=== PATIENT | male | born 1960 | race Two or more races ===

== ENCOUNTER 2017-08-01 09:14 | Day surgery (SDC) | payer OTHER ==
[~2017-08-01] VITALS: Ht 165.1 cm; Wt 108.0 kg
[2017-08-01] VITALS (9 sets, daily range): BP systolic 115–143; BP diastolic 76–92
--- NOTE | 2017-08-01 07:31 | Pre-Procedure Note/Attestation ---
Pre-Procedure Note/Attestation Complete Prior to Procedure Planned Procedure: left Procedure Narrative: knee arthroscopy medial menisectomy Indications for Procedure Pre-Operative Diagnosis: left knee medial meniscus tear Attestation I attest that I discussed the nature of the procedure; its benefits; risks and complications; and alternatives (and the risks and benefits of such alternatives ), prior to the procedure, with the patient (or the patient's legal insurance representative). I attest that, if there was a reasonable possibility of needing a blood transfusion, the patient (or the patient's legal insurance representative) was given the [facility] standardized written summary, pursuant to the Isma Kp Blood Safety Act ([place] Health and Safety Code # 1645, as amended). I attest that I re-evaluated the patient just prior to the surgery and that there has been no change in the patient's H&P, except as documented below: ABDIEL PEDRAZA Aug 01, 2017 07:31
--- NOTE | 2017-08-01 07:32 | Operative Note - PDOC ---
Operative Note Operative Note Pre-op Diagnosis: left knee medial meniscus tear Procedure: left knee tricompartmental synovectomy Post-op Diagnosis: same as pre-op plus Operative Findings: consistent w/pre-op dx studies Anesthesia: MAC Specimen: none Complications: none Condition: stable Estimated Blood Loss: none Implant(s) used?: No ABDIEL PEDRAZA Aug 01, 2017 07:32
[~2017-08-01 09:14] MED LIST: D5 1/2NS 1,000 ML IV SCH; GEMFIBROZIL600 MG ORAL; HYDROmorphone 1mg/ml Carpuject SUBQ PRN; LOSARTAN POTASS25 MG ORAL; Norco 5mg/325mg tab ORAL PRN; PANTOPRAZOLE SO40 MG ORAL; Tylenol #3 tab (300mg/30mg) ORAL PRN; ceFAZolin 1gm in D5W 55ml IVP ONE; celeBREX 200mg Cap **SURGERY PATIENTS ONLY ORAL ONE; oxyCONTIN 20mg tab ORAL ONE
[2017-08-01] MEDS ORDERED: NS Irrig 4000ml IRRIG ONE (16:00)
[2017-08-01] MEDS ORDERED: Ketorolac 30mg Inj ONE ×2 (16:00→16:02)
[2017-08-01] MEDS ORDERED: ePHEDrine 50mg/ml Inj ONE (16:00)
[2017-08-01] MEDS ORDERED: fentaNYL 100 mcg/2 mL IV ONE (16:00)
[2017-08-01] MEDS ORDERED: Propofol 200mg/20ml IV ONE (16:00)
[2017-08-01] MEDS ORDERED: Lidocaine 1% MPF 10mg/ml 5ml ONE (16:00)
[2017-08-01] MEDS ORDERED: Metoclopramide 10mg/2ml Inj ONE (16:00)
[2017-08-01] MEDS ORDERED: LR 1000ml ONE (16:00)
[2017-08-01] MEDS ORDERED: Lidocaine 1% 10mg/ml/Epi 0.005mg/ml 30ml vial INJ ONE (16:02)
[2017-08-01] MEDS ORDERED: Morphine Sulfate PF 10 ML ONE (16:02)
[2017-08-01] MEDS ORDERED: Bupivacaine 0.25% Inj 30ml INJ ONE (16:02)
[2017-08-01] MEDS ORDERED: Kenalog-40 1ml Vial ONE (16:15)
[2017-08-01] MEDS ORDERED: Metoclopramide 10mg/2ml Inj IVP PRN (16:15)
[2017-08-01] MEDS ORDERED: fentaNYL 100 mcg/2 mL IV PRN (16:15)
[2017-08-01] MEDS ORDERED: Duramorph PF 10mg/10ml amp IV ONE (16:50)
--- NOTE | 2017-08-01 16:57 | Anethesia Preoperative Eval ---
Anesthesia Pre-op PMH/ROS General Date of Evaluation: Aug 01, 2017 Time of Evaluation: 16:56 Anesthesiologist: erich ASA Score: ASA 3 Mallampati Score Class I : Soft palate, uvula, fauces, pillars visible Class II: Soft palate, uvula, fauces visible Class III: Soft palate, base of uvula visible Class IV: Only hard plate visible Mallampati Classification: Class III Surgeon: astudillo Diagnosis: meniscus tear Surgical Procedure: Left knee arthroscopy Anesthesia History: none Social History: smoking Family History: no anesthesia problems Allergies: Coded Allergies: CAT DANDER (Verified Allergy, Intermediate, sneezing, 07/31/17) Medications: see eMAR Past Medical History Cardiovascular: Reports: HTN Pulmonary: Reports: GAGAN, Denies: asthma, COPD, other Gastrointestinal/Genitourinary: Reports: GERD Neurologic/Psychiatric: Denies: dementia, CVA, depression/anxiety, TIA, other Endocrine: Denies: DM, hypothyroidism, steroids, other Hematology/Immune: Denies: anemia, DVT, bleeding disorder, other Musculoskeletal/Integumentary: Reports: DJD, Denies: OA, RA, DDD, edema, other Other: obesity PSxH Narrative: hernia, lap aleida Anesthesia Pre-op Phys. Exam Physician Exam Last Vital Signs Date Time Temp Pulse Resp B/P (MAP) Pulse Ox O2 Delivery O2 Flow Rate FiO2 08/01/17 10:48 98.7 82 18 132/83 95 Room Air Constitutional: NAD Neurologic: CN 2-12 intact Cardiovascular: RRR Respiratory: CTA Gastrointestinal: S/NT/ND Airway Exam Mallampati Classification 3 Mallampati Score: Class III MO: limited ROM: full Dentures: upper, no lower Anesthesia Pre-op A/P Studies Pre-op Studies: EKG - sr Risk Assessment & Plan Plan: general lma Pre-Antibiotics Drug: ancef Given Within 1 Hr of Incision: Yes Time Given: 16:30 NORA STORY CRNA Aug 01, 2017 16:57
--- NOTE | 2017-08-01 17:16 | Immediate Post-Op Evaluation ---
Immediate Post-Op Evalulation Immediate Post-Op Evalulation Procedure: left knee arthroscopy Date of Evaluation: Aug 01, 2017 Time of Evaluation: 17:16 IV Fluids: 800 Blood Pressure Systolic: 127 Blood Pressure Diastolic: 83 Pulse Rate: 54 Respiratory Rate: 14 O2 Sat by Pulse Oximetry: 100 Temperature (Fahrenheit): 97.6 Pain Score (1-10): 0 Nausea: No Vomiting: No Complications none Patient Status: awake, reacts, patent Hydration Status: adequate Drug: ancef Given Within 1 Hr of Incision: Yes Time Given: 16:30 NORA STORY CRNA Aug 01, 2017 17:16
--- NOTE | 2017-08-02 02:31 | Operative Note - Dictated ---
DATE OF OPERATION: 08/01/2017 PREOPERATIVE DIAGNOSIS: Left knee internal derangement secondary to possible medial meniscus tear. POSTOPERATIVE DIAGNOSES: 1. Left knee traumatic medial plica. 2. Intrameniscal degeneration, posterior horn of medial meniscus. 3. Hypertrophic synovial tissue, medial and lateral patellofemoral compartment. PROCEDURE: 1. Left knee diagnostic arthroscopy. 2. Synovectomy of medial lateral patellofemoral compartment. SURGEON: Bari Aviles M.D. ANESTHESIA: MAC with local. INDICATION FOR PROCEDURE: The patient is a pleasant gentleman who has had left knee pain. He had an MRI, which showed possible meniscal tear. After failing conservative treatment, elected to undergo left knee diagnostic arthroscopy and possible medial meniscectomy. Risks, limitations, expectations and complications related to procedure were discussed in detail including continued pain, need for future surgery, risk of anesthesia, medical complications, etc. All questions were addressed. DESCRIPTION OF PROCEDURE: An informed consent was obtained. The patient was brought to the operating room. The patient was placed under monitored anesthesia control. Tourniquet was applied to left proximal thigh. The left leg was prepped and draped in a sterile manner. Time-out was performed. A 0.25% Marcaine was injected into the left knee. Portal sites were injected with 1% lidocaine with epinephrine. Esmarch was used to exsanguinate the extremity. Inferolateral stab incision was then made. Trocar was introduced into the knee joint. Of note, on introducing the trocar, there was significant resistance secondary to the scar tissue in the lateral gutters. Once the patellofemoral compartment was entered, it was difficult to visualize patellofemoral compartment due to hypertrophic synovial tissue. It appeared to be a medial plica. Medial gutter was entered, free from the meniscal loose bodies. Medial compartment was entered. Medial working portal was established and the posterior horn of the meniscus was probed, posterior horn where the concern for the tear was. There was no significant chondral damage. There was hypertrophy of ligamentum and synovial tissue lateral compartment of the knee. Once this was removed, ACL was probed and noted to be intact. Lateral compartment was entered and noted to be intact. The camera was repositioned in the patellofemoral compartment and synovectomy of the patellofemoral compartment was completed. Once that was done, of note, there was an area corresponding to the medial plica along the medial femoral condyle where it seemed like it was impinging causing the symptoms. At this point, the instruments were removed. Portal sites were closed using 3-0 Monocryl sutures. Steri-Strips and a sterile dressing were applied. The patient was awoken and taken to recovery with stable vital signs. ESTIMATED BLOOD LOSS: None. COMPLICATIONS: None. SPECIMENS: None. IMPLANTS: None. Bari Aviles M.D. DR: GERONIMO JOB#: [id number] CC: RAVI
[2017-08-27 09:01] VITALS: BP 140/76
--- NOTE | 2017-08-27 09:01 | 48 Hour Post Anesthesia Eval ---
Post Anesthesia Evaluation Procedure: left knee arthroscopy Date of Evaluation: Aug 27, 2017 Time of Evaluation: 09:00 Blood Pressure Systolic: 140 0: 76 Pulse Rate: 96 Respiratory Rate: 14 O2 Sat by Pulse Oximetry: 100 Airway: patent Nausea: No Vomiting: No Hydration Status: adequate Mental Status/LOC: patient returned to baseline Follow-up Care/Observations: na Post-Anesthesia Complications: none Follow-up care needed: N/A NORA STORY CRNA Aug 27, 2017 09:01
== END 2017-08-01 18:45 | disposition home or self-care (01) ==
LOC: SUR 09:14
DX: M67.52 Plica syndrome, left knee (principal); M67.262 Synovial hypertrophy, not elsewhere classified, left lower leg; K21.9 Gastro-esophageal reflux disease without esophagitis; I10 Essential (primary) hypertension; E78.5 Hyperlipidemia, unspecified; G47.33 Obstructive sleep apnea (adult) (pediatric); Z90.49 Acquired absence of other specified parts of digestive tract; Z82.49 Family history of ischemic heart disease and other diseases of the circulatory system; Z80.9 Family history of malignant neoplasm, unspecified; Z91.048 Other nonmedicinal substance allergy status; M19.90 Unspecified osteoarthritis, unspecified site
CPT/HCPCS: 29876; 97161; J0690; J1885; J2274; J2405; J2704; J2765; J3010; J3301; J3490; J7120; 94003; 94150

== ENCOUNTER 2018-03-05 05:34 | Inpatient (IN) | payer OTHER ==
[2018-03-05] VITALS (8 sets, daily range): BP systolic 110–161; BP diastolic 49–104
[~2018-03-05] VITALS: Ht 167.6 cm; Wt 112.0 kg
[~2018-03-05 05:34] MED LIST changes: -D5 1/2NS 1,000 ML IV SCH; -HYDROmorphone 1mg/ml Carpuject SUBQ PRN; -Norco 5mg/325mg tab ORAL PRN; -Tylenol #3 tab (300mg/30mg) ORAL PRN; -ceFAZolin 1gm in D5W 55ml IVP ONE; -celeBREX 200mg Cap **SURGERY PATIENTS ONLY ORAL ONE; -oxyCONTIN 20mg tab ORAL ONE
[2018-03-05] MEDS ORDERED: LR 1000ml 1,000 ML IVLG SCH (06:52)
--- NOTE | 2018-03-05 06:52 | Anethesia Preoperative Eval ---
Anesthesia Pre-op PMH/ROS General Date of Evaluation: Mar 05, 2018 Time of Evaluation: 07:21 Anesthesiologist: Иван ASA Score: ASA 3 Mallampati Score Class I : Soft palate, uvula, fauces, pillars visible Class II: Soft palate, uvula, fauces visible Class III: Soft palate, base of uvula visible Class IV: Only hard plate visible Mallampati Classification: Class III Surgeon: Haroldo Diagnosis: Back Pain Surgical Procedure: Left PLIF L4-5, L5-S1 , Decompression Anesthesia History: none Family History: no anesthesia problems Allergies: Coded Allergies: CAT DANDER (Verified Allergy, Intermediate, sneezing, 03/04/18) Medications: see eMAR Past Medical History Cardiovascular: Reports: HTN, other - HL Pulmonary: Reports: GAGAN Gastrointestinal/Genitourinary: Reports: GERD PSxH Narrative: L Knee SX, Cholecystectomy, Nasal Polyps SX, Umbilical Hernia Repair, Bilateral Inguinal Hernia Repair, Laser Renolithiasis SX, Lumbar Spine SX Anesthesia Pre-op Phys. Exam Physician Exam Last Vital Signs Date Time Temp Pulse Resp B/P (MAP) Pulse Ox O2 Delivery O2 Flow Rate FiO2 03/05/18 06:29 97.6 67 20 117/76 (90) 96 97.6 03/05/18 06:10 Room Air Constitutional: NAD Neurologic: CN 2-12 intact Cardiovascular: RRR Respiratory: CTA Gastrointestinal: S/NT/ND Airway Exam Mallampati Score: Class III MO: limited ROM: limited Teeth: missing, intact Anesthesia Pre-op A/P Risk Assessment & Plan Assessment: ASA 3 Plan: GA, BIS, GlideScope Go Status Change Before Surgery: No Pre-Antibiotics Dru Grams Ancef IV Given Within 1 Hr of Incision: No Time Given: 07:36 Gokul Oates MD Mar 05, 2018 06:52
[2018-03-05] MEDS ORDERED: fentaNYL 100 mcg/2 mL IV PRN (07:00)
[2018-03-05] MEDS ORDERED: Acetaminophen (Non formulary) 100 ML IV SCH (07:00)
[2018-03-05] MEDS ORDERED: Midazolam 2mg/2ml Inj IVP PRN (07:00)
[2018-03-05] MEDS ORDERED: Labetalol 5mg/ml 20ml vial IV PRN (07:00)
[2018-03-05] MEDS ORDERED: Atropine Inj 1mg/10ml Syr IV PRN (07:00)
[2018-03-05] MEDS ORDERED: Metoclopramide 10mg/2ml Inj IVP PRN (07:00)
[2018-03-05] MEDS ORDERED: Ketorolac 30mg Inj IV PRN ×2 (07:00)
[2018-03-05] MEDS ORDERED: LORazepam Inj 2mg/ml 1ml IV PRN (07:00)
[2018-03-05] MEDS ORDERED: Hydromorphone 0.5mg/0.5ml inj IVP PRN (07:00)
[2018-03-05] MEDS ORDERED: DiphenhydrAMINE 50mg/ml Inj IVP PRN (07:00)
[2018-03-05] MEDS ORDERED: Norco 5mg/325mg tab ORAL PRN (07:00)
[2018-03-05] MEDS ORDERED: HYDROcodone/Acetamin 7.5/325 tab ORAL PRN (07:00)
[2018-03-05] MEDS ORDERED: oxyCODONE HCL/Acetaminophen 5/325mg ORAL PRN (07:00)
[2018-03-05] MEDS ORDERED: Thrombin 5000 units spray kit TOPIC ONE ×2 (07:01→09:18)
[2018-03-05] MEDS ORDERED: EPINEPHrine 1mg/1ml Amp ONE (07:01)
[2018-03-05] MEDS ORDERED: Bupivacaine 0.25% Inj 30ml INJ ONE (07:02)
[2018-03-05] MEDS ORDERED: Thrombin 5000 units TOPIC ONE (07:02)
[2018-03-05] MEDS ORDERED: Bacitracin 50000 Units Vial ONE (07:03)
[2018-03-05] MEDS ORDERED: Dyna-Hex 2% Top Sol 2oz TOPIC ONE (07:03)
[2018-03-05] MEDS ORDERED: Lidocaine 1% Plain 30 ml INJ ONE (07:14)
[2018-03-05] MEDS ORDERED: Lidocaine 1% MPF 10mg/ml 5ml ONE ×2 (07:21→10:46)
[2018-03-05] MEDS ORDERED: Sodium Chloride 10ml vial INJ ONE (07:21)
[2018-03-05] MEDS ORDERED: Dexamethasone 4mg/ml vial ONE (07:21)
[2018-03-05] MEDS ORDERED: fentaNYL 100 mcg/2 mL IV ONE ×4 (07:25→12:59)
[2018-03-05] MEDS ORDERED: NS Irrig 1000ml ONE (07:30)
[2018-03-05] MEDS ORDERED: Zemuron 50mg/5ml Inj IV ONE (07:30)
[2018-03-05] MEDS ORDERED: Sterile Water Irrig 1000ml IRRIG ONE (07:30)
[2018-03-05] MEDS ORDERED: Propofol 1,000mg/ 100ml btl IV ONE (07:30)
[2018-03-05] MEDS ORDERED: LR 1000ml ONE (07:30)
--- NOTE | 2018-03-05 07:31 | Pre-Procedure Note/Attestation ---
Pre-Procedure Note/Attestation Complete Prior to Procedure Planned Procedure: bilateral Procedure Narrative: L4-S1 PLIF with decompression and PIF Indications for Procedure Pre-Operative Diagnosis: L4-S1 stenosis with back pain and radiculopathy Attestation I attest that I discussed the nature of the procedure; its benefits; risks and complications; and alternatives (and the risks and benefits of such alternatives ), prior to the procedure, with the patient (or the patient's legal outreach representative). I attest that, if there was a reasonable possibility of needing a blood transfusion, the patient (or the patient's legal outreach representative) was given the [facility] standardized written summary, pursuant to the Isma Kp Blood Safety Act ([place] Health and Safety Code # 1645, as amended). I attest that I re-evaluated the patient just prior to the surgery and that there has been no change in the patient's H&P, except as documented below: Ramesh Zarco Mar 05, 2018 07:31
[2018-03-05] MEDS ORDERED: ePHEDrine 50mg/ml Inj ONE (07:49)
[2018-03-05] MEDS: Gelfoam Absorbable 1gm powder pkt TOPIC ONE ×2 (08:00→09:56)
[2018-03-05] MEDS ORDERED: Bupivacaine 0.5% Inj 30 ml vial INJ ONE (08:10)
--- NOTE | 2018-03-05 08:57 | Immediate Post-Op Evaluation ---
Immediate Post-Op Evalulation Immediate Post-Op Evalulation Procedure: Left PLIF L4-5, L5-S1 , Decompression Date of Evaluation: Mar 05, 2018 Time of Evaluation: 13:38 IV Fluids: 1300 LR Blood Products: 0 Estimated Blood Loss: 100 Urinary Output: 100 Blood Pressure Systolic: 161 Blood Pressure Diastolic: 104 Pulse Rate: 99 Respiratory Rate: 16 O2 Sat by Pulse Oximetry: 96 Temperature (Fahrenheit): 97 Pain Score (1-10): 3 Nausea: No Vomiting: No Complications 0 Patient Status: awake, reacts, patent, extubated, none Hydration Status: adequate Dru Grams Ancef IV Given Within 1 Hr of Incision: Yes Time Given: 07:36 Gokul Oates MD Mar 05, 2018 08:57
[2018-03-05] MEDS ORDERED: Glycopyrrolate 0.2mg/ml 1ml Vial ONE ×2 (09:34→10:56)
[2018-03-05] MEDS ORDERED: Neostigmine 1mg/ml 10ml Inj ONE (09:34)
[2018-03-05] MEDS ORDERED: Vancomycin 1gm inj IVPB ONE (09:44)
[2018-03-05] MEDS ORDERED: Gelfoam Absorbable 1gm powder pkt TOPIC ONE (09:44)
[2018-03-05] MEDS ORDERED: Naloxone 0.4mg/ml Inj IVP PRN (14:15)
[2018-03-05] MEDS: NS w/KCl 20mEq 1,000 ML IV SCH (16:33)
[2018-03-05] MEDS: ceFAZolin sod 1 GM in D5W 55 ML IV SCH (16:33)
--- NOTE | 2018-03-05 16:55 | Brief Operative Note ---
Immediate Post Operative Note Operative Note Pre-op Diagnosis: L4-S1 stenosis with back pain and radiculopathy Procedure: Left sided L4-S1 PLIF with extended decompression (revision at L5-S1) and PIF Post-op Diagnosis: same as pre-op Surgeon: Dr Zarco Tow Mate: Dr Arboleda Anesthesiologist: Dr Oates Anesthesia: general Specimen: yes Complications: none Condition: stable Fluids: NA Estimated Blood Loss: volume - 200 ml Drains: none Implant(s) used?: Yes Ramesh Zarco Mar 05, 2018 16:55
--- NOTE | 2018-03-05 17:18 | Diagnostic Imaging Report ---
Indication: Back pain, lower extremity pain, intraoperative imaging Technique: Intraoperative images Comparison: None Findings: Intraoperative images demonstrate initially surgical tool projected posterior to what is presumably L4-5 disc. Subsequent images demonstrate posterior fusion hardware and placement of disc spacers bridging L4, L5, and S1 Impression: Intraoperative images, as described
[2018-03-05] MEDS: Docusate 100mg cap ORAL SCH (17:50)
--- NOTE | 2018-03-05 18:09 | 48 Hour Post Anesthesia Eval ---
Post Anesthesia Evaluation Procedure: Left PLIF L4-5, L5-S1 , Decompression Date of Evaluation: Mar 05, 2018 Time of Evaluation: 20:06 Blood Pressure Systolic: 121 0: 70 Pulse Rate: 74 Respiratory Rate: 20 Temperature (Fahrenheit): 98.3 O2 Sat by Pulse Oximetry: 97 Airway: patent Nausea: No Vomiting: No Pain Intensity: 3 Hydration Status: adequate Cardiopulmonary Status: Stable Mental Status/LOC: patient returned to baseline Follow-up Care/Observations: 0 Post-Anesthesia Complications: 0 Follow-up care needed: N/A Gokul Oates MD Mar 05, 2018 18:09
[2018-03-05] MEDS: HYDROcodone/Acetamin 7.5/325 tab ORAL PRN (20:14)
--- NOTE | 2018-03-05 20:28 | General Progress Note ---
Assessment/Plan Status Narrative IMPRESSION: s/p Left sided L4-S1 PLIF with extended decompression (revision at L5-S1) and PIF hypertenison hyperlipid gerd over weight ? GAGAN Assessment/Plan possible gagan will place on cpap ps 10 with 2 liter o2 resume bp- and gerd meds will follow Subjective Date patient seen: Mar 05, 2018 Time patient seen: 20:26 Constitutional: Reports: no symptoms HEENT: Reports: no symptoms Cardiovascular: Reports: no symptoms Respiratory: Reports: no symptoms Allergies: Coded Allergies: CAT DANDER (Verified Allergy, Intermediate, sneezing, 03/04/18) Subjective slightly numb on the lateral aspect o fhte leg Objective Last 24 Hour Vital Signs Date Time Temp Pulse Resp B/P (MAP) Pulse Ox O2 Delivery O2 Flow Rate FiO2 03/05/18 18:09 208.9 74 20 97 03/05/18 15:00 98.3 74 20 121/70 (87) 97 98.3 03/05/18 14:55 Nasal Cannula 2.0 03/05/18 14:00 94 16 124/75 94 Nasal Cannula 3 03/05/18 13:45 94 16 112/80 95 Nasal Cannula 3 03/05/18 13:37 96 16 110/63 96 Simple Mask 10 03/05/18 13:32 96 16 110/49 96 Simple Mask 10 03/05/18 13:28 206.6 99 16 96 03/05/18 13:27 97 99 16 161/104 96 Simple Mask 10 97.0 03/05/18 06:29 97.6 67 20 117/76 (90) 96 97.6 03/05/18 06:10 Room Air Height (Feet): 5 Height (Inches): 6.00 Weight (Pounds): 247 General Appearance: WD/WN Cardiovascular: normal rate, no JVD Respiratory/Chest: lungs clear Abdomen: soft Extremities: other - abvle to doriflex both ankle Ren Khan MD Mar 05, 2018 20:28
[2018-03-06] VITALS: BP 117/74
[2018-03-06] MEDS: ceFAZolin sod 1 GM in D5W 55 ML IV SCH ×2 (00:06→08:12)
--- NOTE | 2018-03-06 02:45 | Operative Note - Dictated ---
DATE OF OPERATION: 03/05/2018 INDICATION FOR SURGERY: The patient is a pleasant 57-year-old gentleman who had undergone a prior decompression at L5-S1. He had initially done well; however, his symptoms started to return and progressively worsened due to the significant findings on MRI. Surgical and non-surgical options were discussed after he had exhausted conservative measures. The patient requested for surgical intervention. RISKS AND BENEFITS DISCUSSION: The patient was apprised about objectives, benefits, risks, and potential complications of the procedure including, but not limited to, worsening of current status, possible need for further procedures, risk of infection, headache, CSF leak, possible spinal cord injury resulting in paralysis, injury to major blood vessels, chronic hemorrhage, stroke, loss of language function, coma and even . No assurance was given whether these symptoms will improve following the procedure. Informed consent was obtained and secured in the chart after the patient voiced understanding of these risks and decided to proceed with the operation. PREOPERATIVE DIAGNOSES: 1. L4-L5 and L5-S1 stenosis. 2. Lumbar radiculopathy. 3. Mechanical back pain. 4. Disc height loss at L4-L5 and L5-S1. 5. Obesity. POSTOPERATIVE DIAGNOSES: 1. L4-L5 and L5-S1 stenosis. 2. Lumbar radiculopathy. 3. Mechanical back pain. 4. Disc height loss at L4-L5 and L5-S1. 5. Obesity. OPERATION PERFORMED: 1. L4-L5 and L5-S1 arthrodesis, posterior interbody technique combined with posterolateral technique. 2. Application of interbody device at L4-L5 and L5-S1 using Nexxt Spine instrumentation. 3. Posterior titanium segmental instrumentation at L4, L5 and S1 bilaterally using Nexxt Spine instrumentation. 4. L4-L5 and L5-S1 bilateral decompressive laminectomies beyond the extent of what is needed for interbody fusion. 5. Microscope. 6. Fluoroscope. 7. Neuromonitoring. 8. Intramuscular and facet injections for postoperative pain control. 9. Allograft. 10. Autograft. 11. Neurolysis at L5-S1 levels secondary to old scar tissue. 12. Modifier for excessive time spent during dissection due to the patient's obesity status including the excessive amount of scar tissue at the L5-S1 requiring greater than one hour of time spent dissecting through scar tissue, performing neurolysis and able to achieve the appropriate exposure for the procedure. 13. Separate incision made to carry out an iliac crest bone graft using Corex device from the right iliac crest. SURGEON: Ramesh Zarco M.D. MARKETING STRATEGY ANALYST: Dillan Arboleda M.D. ANESTHESIA: GETA. ESTIMATED BLOOD LOSS: Approximately 200 mL. FINDINGS: Severe stenosis of the L4-L5 and L5-S1. SPECIMENS: L4-L5 and L5-S1 discs removed. COMPLICATIONS: None. TECHNIQUE: The patient was transferred to the operating room. He was then sedated and intubated by anesthesia team. Preoperative antibiotics were given. Eyes were taped shut after ointment was applied to prevent corneal abrasion. The patient was transferred to operating table, an open Andres table in prone position. Asif catheter was then inserted. Caprice Hugger was placed over the exposed lower body to maintain control of core body temperature. All pressure points were carefully padded. Neuromonitoring team placed the needles in appropriate position and baselines were obtained. C-arm was brought in and localization of all was performed. The skin was prepped and draped in the standard surgical fashion. Time-out was taken. A linear incision was performed with a scalpel blade and dissection was carried down to the fascial layer. The fascia was then opened and dissection was continued over the lamina, facet joint and transverse processes at L4-L5 and L5-S1. The fluoroscope was used again to confirm the correct levels. Extra time was spent during dissection due to the patient's obesity and excessive amount of scar tissue as this was the revision surgery from prior L5-S1 decompression. Using anatomical landmarks, titanium pedicle screws were placed into L4, L5 and S1 bilaterally. Once placed, these were stimulated by neuromonitoring to confirm good positioning, afterwards the microscope was brought in. Bilateral laminectomy at L5-S1 was carried out. This was the revision level where neurolysis and extra time was spent dissecting through scar tissue. Once done so, complete right-sided facetectomy was carried out. The L5-S1 disc space was entered. Complete diskectomy was performed and arthrodesis of the end-plates of L5 and S1 was carried out. Afterwards, attention was paid towards the right iliac crest as a separate subfascial incision was made and the Corex device was introduced into the right iliac crest where iliac crest bone graft was harvested. Once done so, this subfascial opening was closed using sutures. The iliac crest bone graft that was harvested was then placed into the L5-S1 interbody and also placed this to the interbody titanium cage, which was sized appropriately, these were inserted. X-ray was performed confirming the positioning of the L5-S1 interbody. Once done so, attention was paid towards the L4-L5 level where bilateral laminectomies beyond the extent of what is needed for an interbody device placement was performed, full left-sided facetectomy was carried out, excellent decompression of the exiting nerve roots both centrally and the lateral recess confirmed at both levels. The L4-L5 disc space was entered. Complete diskectomy was carried out. Arthrodesis of the end-plates was performed. Titanium cage filled with iliac crest bone graft including local autograft and allograft was inserted into the disc space. X-ray was performed, confirming good positioning of the cage at L4-L5 as well. The wound was copiously irrigated with antibiotic solution. Arthrodesis of the remaining lamina on the right side including the facet joints of L4-L5 and L5-S1 was carried out. The remaining allograft and autograft was placed over the areas of the arthrodesis performed. Titanium jase was then tied onto the screw tulips and tightened down into place. Final tightening was also performed. Next, paraspinal injections and facet injections were performed with Marcaine to help with postoperative pain control. The muscle layers were then reapproximated for watertight closure of the fascial layer, subcutaneous layer and skin edges were all approximated with sutures. Skin glue was applied as a final layer. All needle count, sponge count and instrument counts were correct at the end of the case x2. The neuromonitoring signals were stable throughout the entire case. The patient was then transferred back to recovery in stable condition. The patient was examined after surgical recovery and was able to move all extremities without difficulty. Ramesh Zarco MD DR: JIMENEZ JOB#: [id number] CC:
[2018-03-06 04:00] VITALS: BP 116/68
[2018-03-06] MEDS: NS w/KCl 20mEq 1,000 ML IV SCH (04:37)
[2018-03-06] MEDS: HYDROcodone/Acetamin 7.5/325 tab ORAL PRN ×2 (07:18→15:00)
[2018-03-06 08:00] VITALS: BP 110/66
[2018-03-06] MEDS: Docusate 100mg cap ORAL SCH ×2 (08:33→17:21)
[2018-03-06] MEDS: Losartan 50mg tab ORAL SCH (08:33)
--- NOTE | 2018-03-06 08:44 | General Progress Note ---
Assessment/Plan Status Narrative s/p OPERATION PERFORMED: 1. L4-L5 and L5-S1 arthrodesis, posterior interbody technique combined with posterolateral technique. 2. Application of interbody device at L4-L5 and L5-S1 using Nexxt Spine instrumentation. 3. Posterior titanium segmental instrumentation at L4, L5 and S1 bilaterally using Nexxt Spine instrumentation. 4. L4-L5 and L5-S1 bilateral decompressive laminectomies beyond the extent of what is needed for interbody fusion. 5. Microscope. 6. Fluoroscope. 7. Neuromonitoring. 8. Intramuscular and facet injections for postoperative pain control. 9. Allograft. 10. Autograft. 11. Neurolysis at L5-S1 levels secondary to old scar tissue. 12. Modifier for excessive time spent during dissection due to the patient's obesity status including the excessive amount of scar tissue at the L5-S1 requiring greater than one hour of time spent dissecting through scar tissue, performing neurolysis and able to achieve the appropriate exposure for the procedure. 13. Separate incision made to carry out an iliac crest bone graft using Corex device from the right iliac crest. Assessment/Plan obese GAGAN? hypertenison m,shadia velazquez pt ot pain control DVt prophyalxis. Subjective Date patient seen: Mar 06, 2018 Time patient seen: 08:42 Constitutional: Reports: no symptoms HEENT: Reports: no symptoms Cardiovascular: Reports: no symptoms Respiratory: Reports: no symptoms Allergies: Coded Allergies: CAT DANDER (Verified Allergy, Intermediate, sneezing, 03/04/18) Subjective left leg has some numbness no fever Objective Last 24 Hour Vital Signs Date Time Temp Pulse Resp B/P (MAP) Pulse Ox O2 Delivery O2 Flow Rate FiO2 03/06/18 08:33 110/66 03/06/18 08:00 98.6 89 24 110/66 (81) 92 98.6 03/06/18 07:59 79 18 Nasal Cannula 2.0 28 03/06/18 04:00 98.2 73 24 116/68 (84) 92 98.2 03/06/18 00:00 98.2 84 20 117/74 (88) 93 98.2 03/05/18 21:00 Nasal Cannula 2.0 03/05/18 20:00 98.1 81 23 115/83 (94) 94 98.1 03/05/18 18:09 208.9 74 20 97 03/05/18 15:00 98.3 74 20 121/70 (87) 97 98.3 03/05/18 14:55 Nasal Cannula 2.0 03/05/18 14:00 94 16 124/75 94 Nasal Cannula 3 03/05/18 13:45 94 16 112/80 95 Nasal Cannula 3 03/05/18 13:37 96 16 110/63 96 Simple Mask 10 03/05/18 13:32 96 16 110/49 96 Simple Mask 10 03/05/18 13:28 206.6 99 16 96 03/05/18 13:27 97 99 16 161/104 96 Simple Mask 10 97.0 Intake and Output 03/05/18 03/06/18 19:00 07:00 Intake Total 1300 ml 150 ml Output Total 200 ml Balance 1100 ml 150 ml Intake IV Total 1300 ml 150 ml Output Urine Total 100 ml Estimated Blood Loss 100 ml Height (Feet): 5 Height (Inches): 6.00 Weight (Pounds): 247 General Appearance: WD/WN Cardiovascular: normal rate, regular rhythm, no gallop/murmur Respiratory/Chest: lungs clear Abdomen: soft Extremities: other - no clubbing Ren Khan MD Mar 06, 2018 08:44
[2018-03-06 12:00] VITALS: BP 104/69
[2018-03-06 16:00] VITALS: BP 103/68
[2018-03-06 20:00] VITALS: BP 124/77
[2018-03-07] VITALS: BP 109/71
[2018-03-07 04:00] VITALS: BP 127/71
[2018-03-07] MEDS: Morphine Sulfate 4mg/ml Inj IV PRN ×2 (04:21→10:55)
[2018-03-07 08:00] VITALS: BP 113/79
[2018-03-07] MEDS: Docusate 100mg cap ORAL SCH ×2 (08:50→17:14)
[2018-03-07] MEDS: Losartan 50mg tab ORAL SCH (08:51)
[2018-03-07 12:00] VITALS: BP 108/72
[2018-03-07 16:00] VITALS: BP 102/67
[2018-03-07] MEDS ORDERED: GABAPENTIN300 MG ORAL (16:48)
[2018-03-07] MEDS ORDERED: NORCO 10-325 T1 EACH ORAL (16:49)
[2018-03-07] MEDS ORDERED: COLACE100 MG ORAL (16:50)
[2018-03-07] MEDS ORDERED: Milk of Magnesia 30ml Ud ORAL SCH (17:00)
[2018-03-07 20:00] VITALS: BP 111/72
--- NOTE | 2018-03-07 22:15 | Discharge Summary ---
DATE OF ADMISSION: 03/05/2018 DATE OF DISCHARGE: 03/07/2018 HISTORY: The patient underwent a spine surgery at [facility]. Postoperatively, the patient is able to ambulate. He has some tingling sensation in his lower extremity and some pain. He will be discharged on [place] 10/325 mg q.6 h. p.r.n. pain and Colace 250 mg twice a day. Gabapentin 300 mg b.i.d. Continue Protonix, losartan, and gemfibrozil. The patient understands the spine precautions. The patient to have followup with Dr. Zarco in 2 weeks. Asif was removed. The patient is able to void. The patient will be going home today. Ren Khan M.D. DR: NILDA JOB#: [id number] CC:
--- NOTE | 2018-03-09 12:08 | Discharge Summary ---
Discharge Summary Hospital Course Date of Admission Mar 05, 2018 at 05:34 Date of Discharge Mar 07, 2018 at 20:40 Admitting Diagnosis back pain Reason for Hospitalization: elective surgery HPI Colby Sams is a 57 year old male who was admitted on Mar 05, 2018 at 05 :[address] Consultations dr Khan IM Procedures s/p 03/05/[address] Zarco 1. L4-L5 and L5-S1 arthrodesis, posterior interbody technique combined with posterolateral technique. 2. Application of interbody device at L4-L5 and L5-S1 using Nexxt Spine instrumentation. 3. Posterior titanium segmental instrumentation at L4, L5 and S1 bilaterally using Nexxt Spine instrumentation. 4. L4-L5 and L5-S1 bilateral decompressive laminectomies beyond the extent of what is needed for interbody fusion. 5. Microscope. 6. Fluoroscope. 7. Neuromonitoring. 8. Intramuscular and facet injections for postoperative pain control. 9. Allograft. 10. Autograft. 11. Neurolysis at L5-S1 levels secondary to old scar tissue. 12. Modifier for excessive time spent during dissection due to the patient's obesity status including the excessive amount of scar tissue at the L5-S1 requiring greater than one hour of time spent dissecting through scar tissue, performing neurolysis and able to achieve the appropriate exposure for the procedure. 13. Separate incision made to carry out an iliac crest bone graft using Corex device from the right iliac crest. Hospital Course se dr Khan dc summary FINAL DIAGNOSES 1. L4-L5 and L5-S1 stenosis. 2. Lumbar radiculopathy. 3. Mechanical back pain. 4. Disc height loss at L4-L5 and L5-S1. 5. Obesity. 6. s/p Left PLIF L4-5, L5-S1 , Decompression Discharge Medications Continued Medications: Docusate Sodium* (Colace*) 100 Mg Capsule 250 MG ORAL DAILY, #30 CAP (This prescription has been renewed) Gabapentin* (Gabapentin*) 300 Mg Capsule 300 MG ORAL BID, #90 CAP 0 Refills (This prescription has been renewed) Gemfibrozil (Gemfibrozil*) 600 Mg Tablet 600 MG ORAL DAILY, TAB 0 Refills (This prescription has been renewed) Hydrocodone Bit/Acetaminophen 10-325* ([place] 10-325*) 1 Each Tablet 1 TAB ORAL Q6H PRN for For Pain, #90 TAB 0 Refills (This prescription has been renewed) PRN PAIN Losartan Potassium* (Losartan Potassium*) 25 Mg Tablet 50 MG ORAL DAILY, TAB Pantoprazole* (Pantoprazole*) 40 Mg Tablet.dr 40 MG ORAL DAILY, TAB (This prescription has been renewed) Discharge Condition Upon Discharge: stable Discharge Disposition Patient was discharged to Home (01) Discharge Instructions Discharge Instructions Special Instructions I have been assigned to complete a D/C Summary on this account. I was not involved in the patient management Wendy Esquivel NP Mar 09, 2018 12:08
== END 2018-03-07 20:40 | disposition home or self-care (01) | DRG 460 ==
LOC: SDSOVERFLO 05:34 → 3E 15:03
DX: M48.061 Spinal stenosis, lumbar region without neurogenic claudication (principal); M48.07 Spinal stenosis, lumbosacral region; M51.16 Intervertebral disc disorders with radiculopathy, lumbar region; E66.9 Obesity, unspecified; I10 Essential (primary) hypertension; G47.33 Obstructive sleep apnea (adult) (pediatric); K21.9 Gastro-esophageal reflux disease without esophagitis
CPT/HCPCS: 36415; 72020; 76001; 86850; 86900; 86901; 87081; 94664; 94760; J2405; J2710